=== PATIENT | female | born 1995 | race Caucasian/White ===

== ENCOUNTER 2016-08-23 17:40 | Emergency (ER) | payer OTHER ==
[~2016-08-23 17:40] MED LIST: ABILIFY PO; ALBUTEROL17 GM INH; AURALGAN OTIC S10 M1 AD; BACTRIM DS TABL1 TA1 PO; BENADRYL25 M3 PO; BLOOD PRESSURE MED; CEPHALEXIN500 M1 PO; DIFLUCAN PO; HUMALOG INSULIN PUMP; INSULIN U; INVOKANA100 MG; JANUVIA; LEVAQUIN PO; LOPERAMIDE HCL2 M1 DOB; MACROBID100 M1; METFORMIN HCL500 M1; METOPROLOL SUC100 MG; NAPROSYN-EC500 M1 PO; NO MEDICATIONS; NOVOLIN R100 UNITS/; OMNICEF300 MG PO; PRENATAL1 TA1 PO; SALINE NOSE SPR45 M1 INH; TYLENOL #3 PO; U-500; ZOFRAN ODT4 MG SL; ZOLOFT50 MG; ZYRTEC10 M5 PO; [UNRECOGNIZED DRUG - REMARK]
== END 2016-08-23 18:13 | disposition home or self-care (01) ==
LOC: SED 17:40
DX: S10.93XA Contusion of unspecified part of neck, initial encounter (principal); Y04.2XXA Assault by strike against or bumped into by another person, initial encounter; Y92.410 Unspecified street and highway as the place of occurrence of the external cause; I10 Essential (primary) hypertension; E11.9 Type 2 diabetes mellitus without complications
CPT/HCPCS: 99283